=== PATIENT | female | born 1945 | race Caucasian/White ===

== ENCOUNTER 2016-05-28 13:10 | Inpatient (IN) | payer MEDICARE ==
[~2016-05-28] VITALS: Ht 170.2 cm; Wt 65.8 kg
[2016-05-28] MEDS ORDERED: IV NS 0.9% 1,000 ML ONE (13:14)
[2016-05-28] MEDS ORDERED: HYDROMORPHONE 1 MG/1 ML DISP.SYRIN ONE (13:14)
[2016-05-28] MEDS ORDERED: ONDANSETRON HCL/PF 4 MG/2 ML VIAL ONE (13:14)
[2016-05-28] MEDS ORDERED: IV NS 0.9% 1,000 ML BAG IV ONE (13:30)
[2016-05-28] MEDS ORDERED: HYDROMORPHONE 1 MG/1 ML DISP.SYRIN IV ONE (13:30)
[2016-05-28] MEDS ORDERED: ONDANSETRON HCL/PF 4 MG/2 ML VIAL IV ONE (13:30)
[2016-05-28] MEDS ORDERED: HYDROMORPHONE INJ 2 MG/ML DISP.SYRIN ONE (13:51)
[2016-05-28] MEDS ORDERED: HYDROMORPHONE INJ 2 MG/ML DISP.SYRIN IV ONE (14:00)
[2016-05-28] MEDS ORDERED: LORA0.5T PO (14:14)
[2016-05-28] MEDS ORDERED: SERT100T PO (14:14)
[2016-05-28] MEDS ORDERED: OMEP20CA10 PO (14:14)
[2016-05-28] MEDS ORDERED: TRAZ-147 PO (14:14)
[2016-05-28] MEDS ORDERED: LEVO112T2 PO (14:14)
[2016-05-28] MEDS ORDERED: ONDANSETRON HCL/PF 4 MG/2 ML VIAL IVP PRN (14:30)
[2016-05-28] MEDS ORDERED: MAGNESIUM HYDROXIDE 30 ML UDC PO PRN (14:30)
[2016-05-28] MEDS ORDERED: MAG HYDROX/AL HYDROX/SIMETH 30 ML UDC PO PRN (14:30)
[2016-05-28] MEDS ORDERED: ACETAMINOPHEN 325 MG TABLET PO PRN (14:30)
[2016-05-28] MEDS ORDERED: ZOLPIDEM TARTRATE 5 MG TABLET PO PRN (14:30)
[2016-05-28] MEDS ORDERED: Z GUARD REMEDY 2 OZ OINT TP PRN (14:30)
[2016-05-28 14:48] LABS: BASOPHILS % (AUTO) 0.7 % (0.0-2.0); DIFF TOTAL % 100 %; EOSINOPHILS # (AUTO) 0.1 /CMM (0.0-0.7); EOSINOPHILS % (AUTO) 2.3 % (0.0-6.0); HEMATOCRIT 37 % (33-45); HEMOGLOBIN 11.9 g/dL (11.5-14.8); LYMPHOCYTES # (AUTO) 1.2 /CMM (0.8-4.8); LYMPHOCYTES % (AUTO) 22.3 % (20.0-44.0); MEAN CORPUSCULAR HEMOGLOBIN 29 PG (26.0-33.0); MEAN CORPUSCULAR HGB CONC 33 g/dl (31.0-36.0); MEAN CORPUSCULAR VOLUME 90 fL (82-100); MONOCYTES # (AUTO) 0.4 /CMM (0.1-1.30); MONOCYTES % (AUTO) 6.6 % (2.0-12.0); NEUTROPHILS # (AUTO) 3.8 /CMM (1.8-8.9); NEUTROPHILS % (AUTO) 68.1 % (43.0-81.0); PLATELET COUNT (AUTO) 167 /CMM (150-450); RED BLOOD CELL COUNT(AUTO) 4.06 MIL/uL (4.0-5.2); WHITE BLOOD COUNT (AUTO) 5.6 K/uL (4.3-11.0)
[2016-05-28 14:55] LABS: ANION GAP 12 (5-14); CARBON DIOXIDE 27 mmol/L (21-32); CHLORIDE 108 mmol/L (98-107); CREATININE 0.6 mg/dL (0.6-1.3); GFR 99 mL/min (>60); GLUCOSE 98 mg/dL (74-106); POTASSIUM 3.6 mmol/L (3.5-5.1); SODIUM SERUM 143 mmol/L (136-145); UREA NITROGEN, BLOOD 21 mg/dL (7-18)
[2016-05-28 15:04] LABS: TROPONIN I < 0.017 ng/mL (0.00-0.056)
[2016-05-28 15:14] LABS: INR 1.04 (0.87-1.13); PROTHROMBIN TIME 11.2 SECS (9.5-12.7)
[2016-05-28 15:15] VITALS: BP 136/70
[2016-05-28 16:00] VITALS: BP 136/70
[2016-05-28] MEDS ORDERED: ENOXAPARIN SODIUM 40 MG/0.4 ML DISP.SYRIN SQ SCH (16:00)
[2016-05-28] MEDS ORDERED: LORAZEPAM 0.5 MG TABLET PO PRN (17:00)
[2016-05-28] MEDS ORDERED: IV SET PRIMARY PUMP SET 1 EA INFUS.SET MC ONE (17:21)
[2016-05-28] MEDS: IV NS 0.9% 1,000 ML IV PRN (17:27)
[2016-05-28] MEDS: HYDROCODONE/APAP 5/325MG 1 EACH TABLET PO PRN (19:29)
[2016-05-28 19:54] VITALS: BP_SYST 128; BP_SYST 141; BP_DIAS 58; BP_DIAS 68
[2016-05-28 20:00] VITALS: BP 104/68
[2016-05-28] MEDS ORDERED: MORPHINE SULFATE INJ 2 MG/ML DISP.SYRIN ONE (20:56)
[2016-05-28] MEDS: MORPHINE SULFATE INJ 2 MG/ML DISP.SYRIN IV PRN (21:01)
[2016-05-28] MEDS: TRAZODONE 50 MG TABLET PO PRN (21:16)
[2016-05-29] MEDS ORDERED: ANCEF 1 GM/50 ML D5W IV SCH ×2 (00:30)
[2016-05-29] MEDS: TRAZODONE 50 MG TABLET PO PRN ×2 (00:51→20:54)
[2016-05-29] MEDS: HYDROCODONE/APAP 5/325MG 1 EACH TABLET PO PRN ×2 (00:54→18:48)
[2016-05-29] MEDS ORDERED: MORPHINE SULFATE INJ 2 MG/ML DISP.SYRIN ONE (02:46)
[2016-05-29] MEDS: MORPHINE SULFATE INJ 2 MG/ML DISP.SYRIN IV PRN ×2 (03:04→08:11)
[2016-05-29] MEDS ORDERED: HYDROMORPHONE 1 MG/1 ML DISP.SYRIN ONE ×2 (04:07→17:58)
[2016-05-29] MEDS ORDERED: HYDROMORPHONE 1 MG/1 ML DISP.SYRIN IV PRN (04:30)
[2016-05-29] MEDS ORDERED: HYDROMORPHONE 1 MG/1 ML DISP.SYRIN IV ONE (04:30)
[2016-05-29 07:28] LABS: BASOPHILS % (AUTO) 0.7 % (0.0-2.0); DIFF TOTAL % 100 %; EOSINOPHILS # (AUTO) 0.1 /CMM (0.0-0.7); EOSINOPHILS % (AUTO) 2.1 % (0.0-6.0); HEMATOCRIT 30 % (33-45); LYMPHOCYTES # (AUTO) 1.1 /CMM (0.8-4.8); LYMPHOCYTES % (AUTO) 18.9 % (20.0-44.0); MEAN CORPUSCULAR HEMOGLOBIN 30 PG (26.0-33.0); MEAN CORPUSCULAR HGB CONC 33 g/dl (31.0-36.0); MEAN CORPUSCULAR VOLUME 90 fL (82-100); MONOCYTES # (AUTO) 0.4 /CMM (0.1-1.30); MONOCYTES % (AUTO) 7.5 % (2.0-12.0); NEUTROPHILS % (AUTO) 70.8 % (43.0-81.0); PLATELET COUNT (AUTO) 144 /CMM (150-450); RED BLOOD CELL COUNT(AUTO) 3.37 MIL/uL (4.0-5.2); WHITE BLOOD COUNT (AUTO) 5.7 K/uL (4.3-11.0)
[2016-05-29 07:34] LABS: ALBUMIN 2.9 g/dL (3.4-5.0); BILIRUBIN,TOTAL 0.4 mg/dL (0.2-1.0); CALCIUM, SERUM 7.8 mg/dL (8.5-10.1); CREATININE 0.5 mg/dL (0.6-1.3); PHOSPHORUS 2.6 mg/dL (2.5-4.9); POTASSIUM 3.8 mmol/L (3.5-5.1); TOTAL PROTEIN, SERUM 5.6 g/dL (6.4-8.2)
[2016-05-29 07:38] LABS: THYROID STIMULATING HORMONE 0.72 uIU/mL (0.358-3.74)
[2016-05-29 08:00] VITALS: BP 103/52
[2016-05-29] MEDS: LEVOTHYROXINE SODIUM 112 MCG TABLET PO SCH (08:10)
[2016-05-29] MEDS: SERTRALINE HCL 50 MG TABLET PO SCH (08:11)
[2016-05-29] MEDS: PANTOPRAZOLE 40 MG TABLET.DR PO SCH (08:11)
[2016-05-29] MEDS ORDERED: SECONDARY IV SET 1 EA INFUS.SET MC ONE (10:58)
[2016-05-29] MEDS: Magnesium 1GM/D5W 100ML PREMIX 100 ML IV SCH ×2 (11:10→12:15)
[2016-05-29] MEDS: IV NS 0.9% 1,000 ML IV PRN (12:10)
[2016-05-29] MEDS: HYDROMORPHONE 1 MG/1 ML DISP.SYRIN IV PRN ×2 (12:10→15:04)
[2016-05-29] MEDS ORDERED: FENTANYL PF 250MCG/5ML AMPUL ONE (16:10)
[2016-05-29] MEDS ORDERED: ROCURONIUM BROMIDE 50 MG/5 ML ONE (16:10)
[2016-05-29 16:25] VITALS: BP 100/55
[2016-05-29] MEDS ORDERED: BACITRACIN 50000 UNITS/VIAL ONE (16:48)
[2016-05-29] MEDS ORDERED: BUPIVACAINE MPF 0.5% W/EPI INJ 30 ML VIAL ONE (16:48)
[2016-05-29] MEDS ORDERED: BUPIVACAINE 0.5 % PF 150 MG/30 ML VIAL ONE (16:48)
[2016-05-29] MEDS ORDERED: ANESTHESIA TRAY IN PYXIS 1 EA TRAY MC ONE (18:31)
[2016-05-29 20:00] VITALS: BP 97/53
[2016-05-29 20:22] VITALS: BP 97/53
[2016-05-30] MEDS ORDERED: SECONDARY IV SET 1 EA INFUS.SET MC ONE (00:16)
[2016-05-30] MEDS: CEFAZOLIN 1 GM in IV D5W 50 ML IV SCH ×3 (00:39→17:29)
[2016-05-30] MEDS: HYDROCODONE/APAP 5/325MG 1 EACH TABLET PO PRN ×3 (00:59→20:13)
[2016-05-30] MEDS: IV NS 0.9% 1,000 ML IV PRN (05:05)
[2016-05-30 07:12] LABS: CALCIUM, SERUM 7.9 mg/dL (8.5-10.1); CREATININE 0.6 mg/dL (0.6-1.3)
[2016-05-30 07:37] LABS: DIFF TOTAL % 100 %; HEMATOCRIT 27 % (33-45); HEMOGLOBIN 8.9 g/dL (11.5-14.8); LYMPHOCYTES # (AUTO) 0.6 /CMM (0.8-4.8); LYMPHOCYTES % (AUTO) 5.9 % (20.0-44.0); MEAN CORPUSCULAR HEMOGLOBIN 29 PG (26.0-33.0); MEAN CORPUSCULAR HGB CONC 33 g/dl (31.0-36.0); MEAN CORPUSCULAR VOLUME 90 fL (82-100); MONOCYTES # (AUTO) 0.6 /CMM (0.1-1.30); MONOCYTES % (AUTO) 5.8 % (2.0-12.0); NEUTROPHILS # (AUTO) 8.4 /CMM (1.8-8.9); NEUTROPHILS % (AUTO) 88.3 % (43.0-81.0); PLATELET COUNT (AUTO) 132 /CMM (150-450); RED BLOOD CELL COUNT(AUTO) 3.05 MIL/uL (4.0-5.2); WHITE BLOOD COUNT (AUTO) 9.5 K/uL (4.3-11.0)
[2016-05-30 08:00] VITALS: BP 98/56
[2016-05-30] MEDS: LEVOTHYROXINE SODIUM 112 MCG TABLET PO SCH (08:42)
[2016-05-30] MEDS: SERTRALINE HCL 50 MG TABLET PO SCH (08:42)
[2016-05-30] MEDS: PANTOPRAZOLE 40 MG TABLET.DR PO SCH (08:45)
[2016-05-30 08:50] VITALS: BP 88/50
[2016-05-30 09:28] VITALS: BP 102/55
[2016-05-30] MEDS: HYDROMORPHONE 1 MG/1 ML DISP.SYRIN IV PRN ×2 (09:30→15:09)
[2016-05-30 15:35] VITALS: BP 118/58
[2016-05-30 16:00] VITALS: BP 121/62
[2016-05-30] MEDS: DOCUSATE SODIUM 100 MG CAPSULE PO SCH (17:28)
[2016-05-30] MEDS: ENOXAPARIN SODIUM 40 MG/0.4 ML DISP.SYRIN SQ SCH (17:29)
[2016-05-30] MEDS ORDERED: BISACODYL (5 MG) 5 MG TABLET.DR PO ONE (19:00)
[2016-05-30] MEDS: TRAZODONE 50 MG TABLET PO PRN (19:56)
[2016-05-30 20:39] VITALS: BP 97/57
[2016-05-31] VITALS (8 sets, daily range): BP systolic 93–129; BP diastolic 51–68
[2016-05-31] MEDS: HYDROCODONE/APAP 5/325MG 1 EACH TABLET PO PRN ×2 (04:30→08:25)
[2016-05-31 07:32] LABS: BASOPHILS % (AUTO) 0.4 % (0.0-2.0); DIFF TOTAL % 100 %; EOSINOPHILS # (AUTO) 0.1 /CMM (0.0-0.7); EOSINOPHILS % (AUTO) 0.9 % (0.0-6.0); HEMATOCRIT 24 % (33-45); HEMOGLOBIN 7.8 g/dL (11.5-14.8); LYMPHOCYTES # (AUTO) 1.2 /CMM (0.8-4.8); LYMPHOCYTES % (AUTO) 17.3 % (20.0-44.0); MEAN CORPUSCULAR HEMOGLOBIN 30 PG (26.0-33.0); MEAN CORPUSCULAR HGB CONC 33 g/dl (31.0-36.0); MEAN CORPUSCULAR VOLUME 90 fL (82-100); MONOCYTES # (AUTO) 0.8 /CMM (0.1-1.30); MONOCYTES % (AUTO) 11.1 % (2.0-12.0); NEUTROPHILS # (AUTO) 4.8 /CMM (1.8-8.9); NEUTROPHILS % (AUTO) 70.3 % (43.0-81.0); PLATELET COUNT (AUTO) 108 /CMM (150-450); RED BLOOD CELL COUNT(AUTO) 2.61 MIL/uL (4.0-5.2); WHITE BLOOD COUNT (AUTO) 6.9 K/uL (4.3-11.0)
[2016-05-31 07:54] LABS: CALCIUM, SERUM 7.6 mg/dL (8.5-10.1); CREATININE 0.6 mg/dL (0.6-1.3); POTASSIUM 3.7 mmol/L (3.5-5.1)
[2016-05-31] MEDS: DOCUSATE SODIUM 100 MG CAPSULE PO SCH (08:24)
[2016-05-31] MEDS: PANTOPRAZOLE 40 MG TABLET.DR PO SCH (08:24)
[2016-05-31] MEDS: LEVOTHYROXINE SODIUM 112 MCG TABLET PO SCH (08:24)
[2016-05-31] MEDS: SERTRALINE HCL 50 MG TABLET PO SCH (08:25)
[2016-05-31] MEDS ORDERED: MORPHINE SULFATE INJ 2 MG/ML DISP.SYRIN IV ONE (11:30)
[2016-05-31] MEDS ORDERED: NA PHOS,M-B/NA PHOS,DI-BA 1 EA ENEMA RC PRN (13:30)
[2016-05-31] MEDS: MORPHINE SULFATE INJ 2 MG/ML DISP.SYRIN IV PRN ×2 (16:19→20:18)
[2016-05-31] MEDS: ENOXAPARIN SODIUM 40 MG/0.4 ML DISP.SYRIN SQ SCH (17:55)
[2016-05-31] MEDS ORDERED: BLOOD IV SET 1 EA INFUS.SET MC ONE (20:15)
[2016-05-31] MEDS ORDERED: IV NS 0.9% 250 ML IV ONE (20:15)
[2016-05-31] MEDS ORDERED: diphenhydrAMINE HCL 50 MG/ML VIAL IV ONE (21:00)
[2016-05-31] MEDS: TRAZODONE 50 MG TABLET PO PRN (22:10)
[2016-06-01 01:38] VITALS: BP 126/67
[2016-06-01] MEDS: MORPHINE SULFATE INJ 2 MG/ML DISP.SYRIN IV PRN ×4 (04:22→16:09)
[2016-06-01 07:22] LABS: BASOPHILS % (AUTO) 0.6 % (0.0-2.0); DIFF TOTAL % 100 %; EOSINOPHILS # (AUTO) 0.1 /CMM (0.0-0.7); EOSINOPHILS % (AUTO) 1.8 % (0.0-6.0); HEMATOCRIT 28 % (33-45); HEMOGLOBIN 9.2 g/dL (11.5-14.8); LYMPHOCYTES # (AUTO) 1.2 /CMM (0.8-4.8); MEAN CORPUSCULAR HEMOGLOBIN 29 PG (26.0-33.0); MEAN CORPUSCULAR HGB CONC 33 g/dl (31.0-36.0); MEAN CORPUSCULAR VOLUME 88 fL (82-100); MONOCYTES # (AUTO) 0.6 /CMM (0.1-1.30); MONOCYTES % (AUTO) 8.3 % (2.0-12.0); NEUTROPHILS # (AUTO) 5.3 /CMM (1.8-8.9); NEUTROPHILS % (AUTO) 72.3 % (43.0-81.0); PLATELET COUNT (AUTO) 115 /CMM (150-450); RED BLOOD CELL COUNT(AUTO) 3.14 MIL/uL (4.0-5.2); WHITE BLOOD COUNT (AUTO) 7.4 K/uL (4.3-11.0)
[2016-06-01 07:41] LABS: CALCIUM, SERUM 8.1 mg/dL (8.5-10.1); CREATININE 0.6 mg/dL (0.6-1.3); POTASSIUM 3.5 mmol/L (3.5-5.1)
[2016-06-01 08:00] VITALS: BP 121/61
[2016-06-01] MEDS: PANTOPRAZOLE 40 MG TABLET.DR PO SCH (08:36)
[2016-06-01] MEDS: LEVOTHYROXINE SODIUM 112 MCG TABLET PO SCH (09:23)
[2016-06-01] MEDS: DOCUSATE SODIUM 100 MG CAPSULE PO SCH (09:23)
[2016-06-01] MEDS: SERTRALINE HCL 50 MG TABLET PO SCH (09:23)
[2016-06-01] MEDS: HYDROCODONE/APAP 5/325MG 1 EACH TABLET PO PRN (10:37)
[2016-06-01] MEDS ORDERED: HYDR-3326 PO (14:15)
[2016-06-01 16:00] VITALS: BP 104/54
== END 2016-06-01 18:23 | DRG 482 ==
LOC: ER 13:11 → MED 14:21
PROC: 0QS706Z Reposition Left Upper Femur with Intramedullary Internal Fixation Device, Open Approach (ICD-10-PCS; principal; 2016-05-29 16:00)
PROC: 30233N1 Transfusion of Nonautologous Red Blood Cells into Peripheral Vein, Percutaneous Approach (ICD-10-PCS; 2016-05-31)
DX: S72.142A Displaced intertrochanteric fracture of left femur, initial encounter for closed fracture (principal); F32.9 Major depressive disorder, single episode, unspecified; E03.9 Hypothyroidism, unspecified; Z86.12 Personal history of poliomyelitis; D69.6 Thrombocytopenia, unspecified; E77.8 Other disorders of glycoprotein metabolism; K59.00 Constipation, unspecified; W01.0XXA Fall on same level from slipping, tripping and stumbling without subsequent striking against object, initial encounter; Y93.9 Activity, unspecified; Y92.89 Other specified places as the place of occurrence of the external cause; Y99.9 Unspecified external cause status; D64.9 Anemia, unspecified
CPT/HCPCS: 36415; 71010-TC; 73510-TC; 73550-TC; 80048-TC; 80053-TC; 80061-TC; 83735-TC; 84100-TC; 84443-TC; 84484-TC; 85025-TC; 85730-TC; 86850-TC; 86901; 86921-TC; 87081-TC; 93307-TC; 97001-TC; 97110-TC; 97116-TC; 97530-TC; A4606; A6209; A6402; C1713; J0690; J1170; J1200; J1650; J2270; J2405; J3010; J3475; J3490; J7030; J7050; J7060; P9016-BL; Z7610

== ENCOUNTER 2016-06-08 19:49 | Inpatient (IN) | payer MEDICARE ==
[~2016-06-08] VITALS: Ht 167.6 cm; Wt 65.8 kg
[~2016-06-08 19:49] MED LIST: HYDR-3326 PO; LEVO112T2 PO; LORA0.5T PO; OMEP20CA10 PO; SERT100T PO; TRAZ-147 PO
[2016-06-08 21:00] VITALS: BP 115/64
[2016-06-08] MEDS ORDERED: ONDANSETRON HCL/PF 4 MG/2 ML VIAL IVP PRN (22:30)
[2016-06-08] MEDS ORDERED: MAG HYDROX/AL HYDROX/SIMETH 30 ML UDC PO PRN (22:30)
[2016-06-08] MEDS ORDERED: LORAZEPAM 0.5 MG TABLET PO PRN (22:30)
[2016-06-08] MEDS ORDERED: Z GUARD REMEDY 2 OZ OINT TP PRN (22:30)
[2016-06-08] MEDS ORDERED: ACETAMINOPHEN 325 MG TABLET PO PRN (22:30)
[2016-06-08] MEDS ORDERED: MAGNESIUM HYDROXIDE 30 ML UDC PO PRN (22:30)
[2016-06-08] MEDS ORDERED: ZOLPIDEM TARTRATE 5 MG TABLET PO PRN (22:30)
[2016-06-08] MEDS ORDERED: ONDANSETRON HCL/PF 4 MG/2 ML VIAL ONE (22:57)
[2016-06-08] MEDS ORDERED: MORPHINE SULFATE INJ 2 MG/ML DISP.SYRIN ONE (22:57)
[2016-06-08] MEDS ORDERED: TRAZODONE 50 MG TABLET ONE ×2 (22:58→23:15)
[2016-06-08] MEDS ORDERED: PHENAZOPYRIDINE HCL 200 MG TABLET PO PRN (23:00)
[2016-06-08] MEDS: MORPHINE SULFATE INJ 2 MG/ML DISP.SYRIN IV PRN (23:07)
[2016-06-08] MEDS: TRAZODONE 50 MG TABLET PO PRN (23:17)
[2016-06-09 04:00] VITALS: BP 114/60
[2016-06-09] MEDS ORDERED: MORPHINE SULFATE INJ 2 MG/ML DISP.SYRIN ONE (04:41)
[2016-06-09] MEDS: MORPHINE SULFATE INJ 2 MG/ML DISP.SYRIN IV PRN ×5 (04:52→18:48)
[2016-06-09] MEDS ORDERED: HYDROCODONE/APAP 5/325MG 1 EACH TABLET ONE (05:30)
[2016-06-09] MEDS: HYDROCODONE/APAP 5/325MG 1 EACH TABLET PO PRN ×5 (05:33→18:48)
[2016-06-09 07:22] LABS: BASOPHILS % (AUTO) 0.5 % (0.0-2.0); DIFF TOTAL % 100 %; EOSINOPHILS # (AUTO) 0.2 /CMM (0.0-0.7); EOSINOPHILS % (AUTO) 2.5 % (0.0-6.0); HEMATOCRIT 31 % (33-45); HEMOGLOBIN 10.3 g/dL (11.5-14.8); LYMPHOCYTES # (AUTO) 1.1 /CMM (0.8-4.8); LYMPHOCYTES % (AUTO) 14.3 % (20.0-44.0); MEAN CORPUSCULAR HEMOGLOBIN 29 PG (26.0-33.0); MEAN CORPUSCULAR HGB CONC 33 g/dl (31.0-36.0); MEAN CORPUSCULAR VOLUME 89 fL (82-100); MONOCYTES # (AUTO) 0.5 /CMM (0.1-1.30); MONOCYTES % (AUTO) 7.2 % (2.0-12.0); NEUTROPHILS # (AUTO) 5.6 /CMM (1.8-8.9); NEUTROPHILS % (AUTO) 75.5 % (43.0-81.0); PLATELET COUNT (AUTO) 218 /CMM (150-450); RED BLOOD CELL COUNT(AUTO) 3.52 MIL/uL (4.0-5.2); WHITE BLOOD COUNT (AUTO) 7.4 K/uL (4.3-11.0)
[2016-06-09 07:35] LABS: ALBUMIN 2.9 g/dL (3.4-5.0); BILIRUBIN,TOTAL 0.5 mg/dL (0.2-1.0); CALCIUM, SERUM 8.4 mg/dL (8.5-10.1); CREATININE 0.6 mg/dL (0.6-1.3); PHOSPHORUS 3.1 mg/dL (2.5-4.9); POTASSIUM 3.6 mmol/L (3.5-5.1); TOTAL PROTEIN, SERUM 6.5 g/dL (6.4-8.2)
[2016-06-09 08:00] VITALS: BP 103/60
[2016-06-09] MEDS: PANTOPRAZOLE 40 MG TABLET.DR PO SCH (08:44)
[2016-06-09] MEDS ORDERED: Z GUARD REMEDY 2 OZ OINT TP PRN (09:00)
[2016-06-09] MEDS ORDERED: SERTRALINE HCL 25 MG TABLET PO SCH (09:00)
[2016-06-09] MEDS: SERTRALINE HCL 50 MG TABLET PO SCH (09:21)
[2016-06-09] MEDS: LEVOTHYROXINE SODIUM 112 MCG TABLET PO SCH (09:23)
[2016-06-09] MEDS ORDERED: DIAZEPAM 5 MG TABLET PO PRN (15:00)
[2016-06-09] MEDS ORDERED: LORAZEPAM 0.5 MG TABLET PO PRN (15:00)
[2016-06-09] MEDS: TRAMADOL HCL 50 MG TABLET PO PRN (17:05)
[2016-06-09] MEDS: TRAZODONE 50 MG TABLET PO PRN (21:33)
[2016-06-10] MEDS: MORPHINE SULFATE INJ 2 MG/ML DISP.SYRIN IV PRN ×5 (00:17→20:49)
[2016-06-10] MEDS: HYDROCODONE/APAP 5/325MG 1 EACH TABLET PO PRN ×3 (00:18→23:47)
[2016-06-10] MEDS: LEVOTHYROXINE SODIUM 112 MCG TABLET PO SCH (07:50)
[2016-06-10] MEDS: PANTOPRAZOLE 40 MG TABLET.DR PO SCH (07:51)
[2016-06-10] MEDS: SERTRALINE HCL 50 MG TABLET PO SCH (07:55)
[2016-06-10 08:00] VITALS: BP 106/53
[2016-06-10] MEDS ORDERED: OXYC-28 PO (12:32)
[2016-06-10] MEDS ORDERED: DOCU-25 PO (12:32)
[2016-06-10] MEDS ORDERED: BISACODYL SUPP (10 MG) 10 MG/SUPP.RECT SUPP.RECT RC PRN (13:00)
[2016-06-10] MEDS: TRAMADOL HCL 50 MG TABLET PO PRN (13:37)
[2016-06-10 16:00] VITALS: BP 105/55
[2016-06-10 20:00] VITALS: BP 105/57
[2016-06-10] MEDS: TRAZODONE 50 MG TABLET PO PRN (22:04)
[2016-06-11] MEDS: MORPHINE SULFATE INJ 2 MG/ML DISP.SYRIN IV PRN ×3 (01:48→13:08)
[2016-06-11 04:00] VITALS: BP 108/60
[2016-06-11] MEDS: HYDROCODONE/APAP 5/325MG 1 EACH TABLET PO PRN ×2 (04:54→10:50)
[2016-06-11 08:00] VITALS: BP 107/68
[2016-06-11] MEDS: PANTOPRAZOLE 40 MG TABLET.DR PO SCH (08:16)
[2016-06-11] MEDS: LEVOTHYROXINE SODIUM 112 MCG TABLET PO SCH (08:16)
[2016-06-11] MEDS: SERTRALINE HCL 50 MG TABLET PO SCH (08:16)
[2016-06-11 08:33] VITALS: BP 107/68
== END 2016-06-11 13:14 | DRG 537 ==
LOC: TELE-TD 20:39 → MEDSG1 21:02
PROVIDERS: ADMIT Specialist; ATTEND Specialist
DX: S76.012A Strain of muscle, fascia and tendon of left hip, initial encounter (principal); E43 Unspecified severe protein-calorie malnutrition; W18.30XA Fall on same level, unspecified, initial encounter; Y92.89 Other specified places as the place of occurrence of the external cause; D69.6 Thrombocytopenia, unspecified; G14 Postpolio syndrome; F32.9 Major depressive disorder, single episode, unspecified; E03.9 Hypothyroidism, unspecified; K21.9 Gastro-esophageal reflux disease without esophagitis; D50.0 Iron deficiency anemia secondary to blood loss (chronic); E88.09 Other disorders of plasma-protein metabolism, not elsewhere classified; M62.50 Muscle wasting and atrophy, not elsewhere classified, unspecified site
CPT/HCPCS: 36415; 73020; 80053-TC; 80061-TC; 83735-TC; 84100-TC; 85025-TC; 87081-TC; J2270; J2405

== ENCOUNTER 2017-05-02 06:42 | Inpatient (IN) | payer MEDICARE ==
[~2017-05-02] VITALS: Ht 167.6 cm; Wt 67.4 kg
[~2017-05-02 06:42] MED LIST changes: +DOCU-141 PO; -HYDR-3326 PO; +OXYC-132 PO
[2017-05-02] MEDS ORDERED: ANESTHESIA TRAY IN PYXIS 1 EA TRAY MC ONE (06:52)
[2017-05-02] MEDS ORDERED: FENTANYL PF 250MCG/5ML AMPUL ONE (07:49)
[2017-05-02] MEDS ORDERED: MIDAZOLAM HCL 2 MG/2ML VIAL ONE (07:49)
[2017-05-02 08:00] VITALS: BP 132/69
[2017-05-02] MEDS ORDERED: BUPIVACAINE 0.5 % PF 150 MG/30 ML VIAL ONE (08:08)
[2017-05-02] MEDS ORDERED: BACITRACIN 50000 UNITS/VIAL ONE (08:08)
[2017-05-02] MEDS ORDERED: ONDANSETRON HCL/PF 4 MG/2 ML VIAL ONE (08:52)
[2017-05-02] MEDS ORDERED: FENTANYL PF 100MCG/2ML AMPUL ONE (09:05)
--- NOTE | 2017-05-02 10:03 | NUR ---
MS RN OPENING RECEIVED PATIENT A/OX4 STATES PAIN 6/10 IN HIP. AWAITING MD ORDERS FOR ADMISSION AND PHARMACY VERIFICATION OF PAIN MEDICATIONS. PATIENT APPEARS STABLE. NO SOB, DIFFICULTY BREATHING AND PATIENT REPOSITIONED FOR INCREASED COMFORT. VS STABLE. DR MELVIN BENITEZ AWARE OF ADMISSION. PATIENT NEEDS IN REACH. PER PATIENT REQUEST CALLED TO NOTIFY PATIENT IN ROOM AGAIN. PATIENT BED LOWERED AND LOCKED, RAILS UPX3 FOR SAFETY AND WILL ROUND Q2H OR LESS PER NEEDS. LEFT HIP BORDERED MEPILEX IN PLACE 2 LOCATIONS. CLEAN DRY AND INTACT.
[2017-05-02 10:09] VITALS: BP 136/69
[2017-05-02] MEDS ORDERED: MORPHINE SULFATE INJ 4 MG/ML DISP.SYRIN IV PRN (10:30)
[2017-05-02] MEDS ORDERED: oxyCODONE/APAP (5/325 MG) 1 UDTAB TABLET PO PRN ×2 (10:30)
--- NOTE | 2017-05-02 11:20 | NUR ---
MS RN NOTES PATIENT ASSISTED TO BSC WITH TTWB LLE NO COMPLICATIONS NOTED. PAIN WELL CONTROLLED WITH PRN PERCOCET ORDERED. PATIENT ASSISTED BACK TO BED. CALL LIGHT AND NEEDS IN REACH. BED LOWERED AND LOCKED, RAILS UPX2 BED ALARM ON.
--- NOTE | 2017-05-02 11:55 | NUR ---
MS RN NOTES DR MELVIN BENITEZ AT BEDSIDE
[2017-05-02] MEDS ORDERED: LORAZEPAM 0.5 MG TABLET PO PRN (13:00)
[2017-05-02] MEDS ORDERED: ONDANSETRON HCL/PF 4 MG/2 ML VIAL IVP PRN (13:00)
[2017-05-02] MEDS ORDERED: ACETAMINOPHEN 325 MG TABLET PO PRN (13:00)
--- NOTE | 2017-05-02 13:21 | NUR ---
MS RN NOTES PATIENT STATES THE PERCOCET HELPED WITH PAIN HOWEVER ONLY FOR 2 HOURS. TOLD PATIENT EVERY 4 HOURS I CAN GIVE. NOTIFIED MELVIN BENITEZ.PER MD GIVE MORPHINE SULFATE 2MG IVP Q3H PRN FOR BREAKTHROUGH PAIN BETWEEN PERCOCET
[2017-05-02] MEDS: MORPHINE SULFATE INJ 4 MG/ML DISP.SYRIN IV PRN ×2 (13:40→21:50)
[2017-05-02] MEDS: ENOXAPARIN SODIUM 40 MG/0.4 ML DISP.SYRIN SQ SCH (13:41)
[2017-05-02 16:00] VITALS: BP 112/60
[2017-05-02] MEDS: DOCUSATE SODIUM 100 MG CAPSULE PO SCH (16:03)
[2017-05-02] MEDS: ANCEF 1 GM/50 ML D5W IV SCH ×4 (16:06→23:53)
[2017-05-02] MEDS: oxyCODONE/APAP (5/325 MG) 1 UDTAB TABLET PO PRN ×2 (16:06→20:18)
--- NOTE | 2017-05-02 18:41 | NUR ---
MS RN CLOSING PATIENT STABLE STATES PAIN WELL CONTROLLED. DOES NOT WANT ANY PAIN MEDICATIONS AT THIS TIME. ALL NEEDS IN REACH, BED LOWERED AND LOCKED, RAILS UPX3 FOR SAFETY AND BED ALARM ON. PATIENT DENIES SOB, DIFFICULTY BREATHING. CARE WILL BE ENDORSED TO RN FOR ARMAND.
[2017-05-02 20:00] VITALS: BP 113/60
--- NOTE | 2017-05-02 20:00 | NUR ---
RN MS INITIAL NOTES, RECEIVED PATIENT IN BED, BREATHING EVEN AND UNLABORED, NO S/S SOB OR CUTE DISTRESS NOTED, C/O PAIN 12/14 IN SURGICAL SITE, WILL ADMINISTERED MEDICATION ORDERED, ABLE TO GET UP FROM BED AND USE WALKER, BED LOCKED AND LOWEST POSITION, CALL LIGHT W/I REACH, WILL CONTINUE TO MONITOR CLOSELY.
[2017-05-02] MEDS ORDERED: TRAZODONE 50 MG TABLET PO SCH (22:00)
[2017-05-03] MEDS: oxyCODONE/APAP (5/325 MG) 1 UDTAB TABLET PO PRN ×2 (03:11→09:54)
[2017-05-03 04:00] VITALS: BP 92/52
[2017-05-03 08:00] VITALS: BP 98/50
[2017-05-03] MEDS: ANCEF 1 GM/50 ML D5W IV SCH ×2 (08:00)
[2017-05-03 08:31] LABS: BASOPHILS % (AUTO) 0.4 % (0.0-2.0); EOSINOPHILS # (AUTO) 0.2 /CMM (0.0-0.7); EOSINOPHILS % (AUTO) 2.7 % (0.0-6.0); HEMATOCRIT 30 % (33-45); HEMOGLOBIN 9.9 g/dL (11.5-14.8); LYMPHOCYTES # (AUTO) 1.4 /CMM (0.8-4.8); MEAN CORPUSCULAR HEMOGLOBIN 30 PG (26.0-33.0); MEAN CORPUSCULAR HGB CONC 33 g/dl (31.0-36.0); MEAN CORPUSCULAR VOLUME 91 fL (82-100); MONOCYTES # (AUTO) 0.5 /CMM (0.1-1.30); MONOCYTES % (AUTO) 9.3 % (2.0-12.0); NEUTROPHILS # (AUTO) 3.6 /CMM (1.8-8.9); NEUTROPHILS % (AUTO) 62.6 % (43.0-81.0); PLATELET COUNT (AUTO) 144 /CMM (150-450); RDW COEFFICIENT OF VARIATION 14.2 (11.5-15.0); RED BLOOD CELL COUNT(AUTO) 3.29 MIL/uL (4.0-5.2); WHITE BLOOD COUNT (AUTO) 5.7 K/uL (4.3-11.0)
[2017-05-03 08:46] LABS: THYROID STIMULATING HORMONE 0.359 uIU/mL (0.358-3.74)
[2017-05-03 08:56] LABS: ALBUMIN 2.9 g/dL (3.4-5.0); BILIRUBIN,TOTAL 0.5 mg/dL (0.2-1.0); CALCIUM, SERUM 8.3 mg/dL (8.5-10.1); CREATININE 0.6 mg/dL (0.6-1.3); MAGNESIUM 1.8 mg/dL (1.8-2.4); PHOSPHORUS 3.3 mg/dL (2.5-4.9); POTASSIUM 3.7 mmol/L (3.5-5.1)
[2017-05-03] MEDS ORDERED: LEVOTHYROXINE SODIUM 112 MCG TABLET PO SCH (09:00)
[2017-05-03] MEDS ORDERED: SERTRALINE HCL 25 MG TABLET PO SCH (09:00)
[2017-05-03] MEDS: ENOXAPARIN SODIUM 40 MG/0.4 ML DISP.SYRIN SQ SCH (09:53)
[2017-05-03] MEDS: DOCUSATE SODIUM 100 MG CAPSULE PO SCH (09:53)
--- NOTE | 2017-05-03 16:21 | NUR ---
Patient discharge with all belongings via uber to home. Caregiver, spouse, Mr. Springer present. Patient intravenous line removed. Site is without erythema, no drainage, no tenderness and no edema. Identification band removed. Toe touch ambulation at this time until further instruction of Doctor Dylan. Patient given medication reconcilliation, home care, and follow up instructions. Verbalizes understanding.
== END 2017-05-03 16:00 | disposition home or self-care (01) | DRG 465 ==
LOC: DS 06:42 → MEDSG1 10:00
PROVIDERS: ADMIT Student in an Organized Health Care Education/Training Program; ATTEND Student in an Organized Health Care Education/Training Program
PROC: 0SPS0JZ Removal of Synthetic Substitute from Left Hip Joint, Femoral Surface, Open Approach (ICD-10-PCS; principal; 2017-05-02 08:09)
DX: T84.84XA Pain due to internal orthopedic prosthetic devices, implants and grafts, initial encounter (principal); E03.9 Hypothyroidism, unspecified; M06.9 Rheumatoid arthritis, unspecified; G89.29 Other chronic pain; Y92.009 Unspecified place in unspecified non-institutional (private) residence as the place of occurrence of the external cause; Y83.1 Surgical operation with implant of artificial internal device as the cause of abnormal reaction of the patient, or of later complication, without mention of misadventure at the time of the procedure
CPT/HCPCS: 36415; 73020; 80053-TC; 80061-TC; 83735-TC; 84100-TC; 84443-TC; 85025-TC; 87081-TC; 88300-TC; 97116-TC; 97530-TC; A4217; A6209; A6402; J0690; J1650; J2250; J2270; J2405; J2704; J3010; J3490; J7050; J7060